=== PATIENT | male | born 1965 | race Caucasian/White ===

== ENCOUNTER 2020-04-03 09:57 | Day surgery (SDC) | payer MEDICAID, SELFPAY ==
--- NOTE | 2020-04-02 11:22 | EKG12_ITS ---
Test Reason : PRE-OP Blood Pressure : / mmHG Vent. Rate : 077 BPM Atrial Rate : 077 BPM P-R Int : 146 ms QRS Dur : 086 ms QT Int : 370 ms P-R-T Axes : 068 -21 068 degrees QTc Int : 418 ms Normal sinus rhythm Normal ECG Confirmed by ZAC BRITT, WES ([id number]), primer expeditor and drier WESLEY ALVAREZ ([id number]) on 04/03/2020 1:45:59 PM Referred By: Amita Harris Confirmed By:WES FRANK MD
[2020-04-02 12:34] LABS: Anion Gap 8 (5-15); BUN 20 mg/dL (7-18); BUN/Creat Ratio 27.6 RATIO (10-20); Calcium,Total 8.9 mg/dL (8.5-10.1); Chloride 107 mmol/L (98-107); Creatinine, Serum 0.72 mg/dL (0.70-1.30); EST Glomerular Filtration Rate 119 mL/min (>60); Est Glom Filt Rate - Afr Amer 144 mL/min (>60); Glucose 123 mg/dL (74-106); Sodium Level 138 mmol/L (136-145)
[2020-04-02 13:08] LABS: Hematocrit 44.4 % (40-54); Hemoglobin 14.6 g/dL (13.0-16.5); Mean Corp Hgb Conc 32.9 g/dL (32-36); Mean Corpuscular Hgb 31.5 pg (27.0-32.0); Mean Corpuscular Volume 95.9 fL (80-94); Mean Platelet Vol. 10.3 fl (6.2-12.0); Platelet Count 344 K/mm3 (150-450); RBC Distribution Width CV 13.8 % (11.6-14.6); RBC Distribution Width SD 48.5 fl (35.1-43.9); Red Blood Count 4.63 M/mm3 (4.6-6.2); White Blood Count 10.5 K/mm3 (4.4-11.0)
[2020-04-03] VITALS (7 sets, daily range): BP systolic 132–152; BP diastolic 86–109; PULSE 68–78; RESP 15–16; TEMP 36.4–36.6; O2SAT 94–98; BMI 30.8
--- NOTE | 2020-04-03 10:48 | HP.PCM_ITS ---
History and Physical Date of Admission: 04/03/20 Roberth Trejo 1965 ? ? REFERRING PHYSICIAN: Daniel Basilio III, MD ? CHIEF COMPLAINT: Update/preop phone visit for hernia surgery ? HPI: Roberth is a 55 year old male I am following with Dr. Amita Harris for ventral and bilateral inguinal hernias. Per Dr. Harris's H&P from 11/10/2019: ? The patient is a 54 year old male?presents with multiple abdominal wall hernias. He has noted these hernias for years, however, lately they have become more bothersome. Denies history of incarceration. Does smoke cigarettes (1 - ?1 11/03 ppd), has tried to quit but is unable to do so. Has known COPD. Has large right and small left inguinal hernias. Has incisional hernia of upper hypogastric area of abdominal wall, inferior to xiphoid, probably from mediastinal tube from his CABG surgery. Also has umbilical hernia. Denies GI/ obstructive symptoms. Denies previous hernia repairs. ? Dr. Harris had recommended hernia repairs, to be done in separate procedures and open due to patient body habitus and tobacco use. Dr. Harris had referred patient to PCP for preoperative clearance prior to surgery as he had not had recent primary care evaluation. Patient was evaluated by Dr. Daniel Basilio III on 12/16/2019, note reviewed. He had cardiac stress testing completed which showed no ischemia. Patient has been advised to quit smoking and is working on cutting back. He was cleared by PCP to proceed with surgery per phone encounter from 12/29/2019. ? Patient was scheduled with Dr. Harris for open right inguinal hernia repair to be performed at [facility] on 04/03 (scheduling note appears to have been entered in an old phone encounter in [facility]). The patient notes no symptoms of bowel obstruction and denies nausea or vomiting. He states the right inguinal hernia is still the only one that is bothering him. Denies any worsening of symptoms since he last spoke with Dr. Harris. Denies chest pain, shortness of breath or other concerns. ? The patient denies any significant change to his overall health since his last visit. His past medical history, past surgical history, medications and allergies are up to date as of this visit. ? ? ? PAST MEDICAL HISTORY PAST MEDICAL HISTORY Diagnosis Date ? ASHD (arteriosclerotic heart disease) 03/15/2018 ? nov, 2017: [place], CABG 2 ? Dyspnea 2017 ? with effort ? Family history of early CAD 2017 ? Ganglion, unspecified ? ? RIGHT FOOT ? Migraine headache with aura 02/16/2014 ? Non-recurrent bilateral inguinal hernia 03/12/2015 ? S/P CABG (coronary artery bypass graft) 11/2017 ? Tendinitis of hand 12/07/2012 ? Tobacco abuse 05/13/2011 ? Umbilical hernia 03/12/2015 ? PAST SURGICAL HISTORY PAST SURGICAL HISTORY Procedure Laterality Date ? CABG (2) VEIN GRAFTS & ARTERIAL GRAFT(S ? 11/2017 ? CURRENT MEDICATIONS Current Outpatient Medications Medication Sig ? glucosam/chond-msm1/C/paul/bor ([id number]-ZLMLF-HYC COMPLEX ORAL) Take by mouth. ? NIACIN ORAL Take by mouth. ? aspirin, enteric coated (ASPIRIN, ENTERIC COATED) 81 mg EC tablet Take 81 mg by mouth once daily. Take 2 tablets daily ? metoprolol tartrate, short acting, (LOPRESSOR) 50 mg tablet Take 50 mg by mouth twice daily. ? atorvastatin (LIPITOR) 40 mg tablet Take 40 mg by mouth once daily. ? Ibuprofen (ADVIL) 100 mg tablet Take 100 mg by mouth every 6 hours as needed. ? OTC NUTRITIONAL SUPPLEMENT b12 (Patient not taking: Reported on 11/10/2019 ) ? acetaminophen (TYLENOL) 325 mg tablet Take 650 mg by mouth as needed. ? No current facility-administered medications for this visit. ? ALLERGIES: Patient has no known allergies. ? PERSONAL HISTORY: SOCIAL HISTORY Social History ? Tobacco Use ? Smoking status: Current Every Day Smoker ? ? Packs/day: 1.50 ? ? Years: 26.00 ? ? Pack years: 39.00 ? ? Types: Cigarettes ? ? Start date: 10/06/1988 ? Smokeless tobacco: Former User Substance Use Topics ? Alcohol use: Yes ? ? Comment: rarely ? Drug use: Yes ? ? Types: Marijuana ? FAMILY HISTORY: FAMILY HISTORY FAMILY HISTORY Adopted: Yes ? REVIEW OF SYMPTOMS: Negative except as noted above ? ? ? Physical examination: Vital signs Temp [] HR [] RR [] BP [] General WD/WN WM/WF in no apparent distress, alert and oriented, not septic appearing HEENT Normocephalic. EOM intact with sclera clear and no icterus noted. Neck is supple with no jugular venous distention noted. Trachea is midline. No carotid bruits noted. No thyroid enlargement or thyroid nodules detected. No masses noted. No cervical adenopathy noted. Lungs clear to auscultation. Good inspiration upon command. Good breath sounds in all lung jha. No rales/rhonchi/wheezing noted. No labored breathing noted, such as retractions. No cough heard. Heart normal S1 and S2 auscultated. No rubs/clicks/murmurs noted. Normal size and location by auscultation. Abdomen soft and benign. Normal bowel sounds area auscultated. No abdominal bruits noted. No distention or tympany noted. No masses noted. No hepatosplenomegaly noted. right inguinal hernia - reducible Extremities no calf tenderness or swelling noted. No pitting edema noted. No obvious deformity noted. Genitourinary/Rectal deferred Skin no rashes noted. Normal skin integrity. Neurological cranial nerves II-XII intact. Normal motor strength in arms and legs. No localized numbness detected. Psychological normal affect, patient is calm and appropriate IMPRESSION: non reducible right inguinal hernia, left reducible inguinal hernia, umbilical hernia, ventral incisional hernia, obesity, tobacco use ? PLAN: I have reviewed my findings with Dr. Harris. She plans to perform an open right inguinal hernia repair with mesh. She has also recommended abdominal wall ventral hernia repairs and open left inguinal hernia repair at separate setting. The planned surgical procedure was discussed extensively with the patient. The risks, benefits, anticipated outcomes and possible complications were mentioned. Roberth sheppardands that all hernia repair surgery has a chance of recurrence and/or chronic post operative pain. My staff has also explained the procedure in understandable terms and the patient was given the option to take printed material concerning the planned procedure. The patient had the opportunity to ask questions concerning the planned procedure. The patient freely consents to the planned procedure. ? As a result of the 01/17/20 order by [facility] Director Stephei Marcum M.D. to cancel non-essential surgeries that would use PPE, unless special criteria are met, I have reviewed the clinical record for this patient and have determined that the scheduled procedure meets the criteria to go forward because there is a presence of severe symptoms causing an inability to perform activities of daily living. ? ? The patient was offered a surgery/procedure. The surgeon/proceduralist and patient have discussed in detail the risk of exposure to and/or potential harm posed by the COVID-19 virus with having a surgery/procedure at this time versus the risk of? delaying the surgery/procedure. It is not possible to know either the risk of delaying the surgery or procedure or chance of getting an infection with perfect accuracy, but a joint decision was made between the patient and the surgeon/proceduralist ?to proceed at this time with the scheduled surgery/procedure. ? Patient will have PAT and COVID testing at [facility] the day prior to surgery ? Patient verbalized understanding of all above and agreed with the plan. ? ? Anticipated CPT Code: open right inguinal hernia repair with mesh - [id number] ? Planned antibiotic: Ancef 2gm IVPB principal consultant to OR ? SCDs needed - Yes Return to Clinic: The patient is instructed to follow-up with me 1 week post operatively. ? ? Meghana Chávez PA-C
[2020-04-03] MEDS: Lactated Ringers 1,000 ML 100 ML IV (11:25)
[2020-04-03] MEDS: Cefazolin 2 GM in 0.9% Normal Saline 100 ML IV (12:16)
[2020-04-03] MEDS: Bupivacaine 0.25% 30 ML Vial (13:12)
--- NOTE | 2020-04-03 13:13 | OP.PCM_ITS ---
Report of Operation Date of Procedure: 04/03/20 Pre-Operative Diagnosis: right inguinal hernia - not reducible Post-Operative Diagnosis: right inguinal hernia - incarcerated - direct and indirect Surgery/Procedure Performed:: repair of incarcerated right inguinal hernia with mesh Description of Surgical Findings:: large incarcerated direct and indirect right inguinal hernia,no evidence of gangrene, incarcerated with intraabdominal and preperitoneal fat resourcing advisor: Maisha Spaulding Type of Anesthesia:: Local MAC Anesthesiologist: Blane Ware Specimen's removed: none Estimated Blood Loss (mL): < 5 ml Fluids Replaced: 1400 ml RL Description of Procedure: After informed consent was obtained, patient was brought to the Operating Room. Appropriate time out protocol was followed. He was then placed in the supine position. The patient was then placed under anesthesia. The lower torso and the right groin area and genitalia were then prepped with a surgical skin preparation and appropriate sterile surgical drapes were placed. The anatomical landmarks were identified and after anesthetizing the skin and subcutaneous tissues with 0.25% Marcaine with epinephrine, a transverse skin incision was made superior to the level of the internal inguinal ring. The subcutaneous tissues were then sharply dissected down to the external oblique fascia and any hemorrhage was adequately controlled with electrocoagulation. The external oblique was then divided obliquely along the fibers and a muscle-splitting incision was then made to divide the internal oblique musculature and fascia. The transversalis fascia was then identified and was then incised parallel to the inferior hypogastric vessels. The preperitoneal space was then entered. Blunt dissection was then done to identify out Trey's ligament, the pubic tubercle and a large area surrounding these landmarks for placement of the mesh. The right iliac vessels were identified. The internal inguinal hernia sac was identified, it was incarcerated in a direct hernia - fascial defect within Hasselbach's triangle. It was reduced. The sac was opened, there was no bowel, mainly intraabdominal fat. There was also surrounding preperitoneal fatty tissues. The opening in the sac was closed with running 3-0 vicryl suture. The contents were then placed in the preperitoneal space. A large right sided Bard 3 D mesh was then placed in the preperitoneal space such that the medial aspect was medial to the pubic tubercle and the inferior edge was inferior to Trey's ligament. It was then flattened against the anterior abdominal wall in its entirety thus covering Hasselbach's triangle the the iliac vessels. The mesh covered the entire wound opening also. The internal oblique fascia was then closed using interrupted 0 prolene suture. One of the sutures was used to lock the mesh into position. Hemostasis was carefully controlled with electrocoagulation. The external oblique fascia was then reapproximated using a running 0 Vicryl suture. This was carefully done to avoid any entrapment of blood vessels/nerves. Yadira's fascia was closed using Vicryl suture in an interrupted simple fashion. The skin incision was closed with 4-0 Monocryl in a running subcuticular fashion. Cavilon and Steri-Strips were used to reinforce the skin closure and appropriate sterile dressing was applied. The patient was brought to the Recovery Room in stable condition. Grafts/Implants Used: Bard 3D right mesh - lot [id number], exp 2024-11-29 - Complications none noted - Admit VTE Documentation VTE Present on Admission: Yes VTE Mechan Device Prophylaxis: SCD's
--- NOTE | 2020-04-03 13:15 | DCINST_ITS ---
Discharge Diet: No Restrictions Discharge Activity: Return to Normal Activity, May not drive while taking narcotic pain medications. Lifting Restrictions: no lifting greater than 50 pounds for one month Call your doctor if your incision/area has: Continuous Slow Oozing, Foul Smelling Discharge Call your doctor if you observe: Fever of 101 or Higher Additional Dressing/Incision Instructions:: Leave dressings in place. May get wet in shower. Do not soak - no tub baths/swimming. Apply ice packs to area for comfort as tolerated Allergies/Adverse Reactions: Allergies No Known Allergies Allergy (Verified 04/03/20 11:11) Medications to take at Discharge Aspirin E.C. [Ecotrin] 81 mg PO DAILY@0800 03/29/20 Atorvastatin Calcium [Lipitor] 40 mg PO QHS 03/29/20 Glucosam/MSM/Chondroit/Vit D3 [Sv Glucosamine Chondroitin Tab] 1 ea PO DAILY 03/29/20 Metoprolol Tartrate [Lopressor (Beta Shailesh)] 25 mg PO BID 03/29/20 Hydrocodone/Acetaminophen [[place] 5-325 Tablet] 1 each PO Q8 PRN 5 Days #15 tablet 04/03/20 The following prescriptions were given: Hydrocodone/Acetaminophen [[place] 5-325 Tablet] 1 each PO Q8 PRN 5 Days #15 tablet PRN Reason: Pain Score 4-10/10 Transmission Status: Sent to [facility] Primary Care Physician: Daniel Basilio III, MD [Primary Care Provider] - Test Results: Test results from this visit will be discussed in further detail at your follow- up appointment, if applicable. Please Follow Up With: Amita Harris MD - When: virtual visit will be schedule for you, if any problems, please call
[2020-04-03] MEDS: HYDROcodone Bitartrate/Apap 5/325 Tablet PO (16:00)
== END 2020-04-03 16:17 | disposition home or self-care (01) ==
LOC: SDC 09:58 → AC 09:59
PROVIDERS: Anesthesiology; PCP Family Medicine; Referring Provider Surgery; Visit Provider Surgery
PROC: (CPT 49507; principal; 2020-04-03 11:45)
DX: K40.30 Unilateral inguinal hernia, with obstruction, without gangrene, not specified as recurrent (principal); K43.9 Ventral hernia without obstruction or gangrene; K42.9 Umbilical hernia without obstruction or gangrene; F17.210 Nicotine dependence, cigarettes, uncomplicated; J44.9 Chronic obstructive pulmonary disease, unspecified; I25.2 Old myocardial infarction; I25.10 Atherosclerotic heart disease of native coronary artery without angina pectoris; E66.9 Obesity, unspecified; K21.9 Gastro-esophageal reflux disease without esophagitis; E78.00 Pure hypercholesterolemia, unspecified; I10 Essential (primary) hypertension; Z11.59 Encounter for screening for other viral diseases; Z68.30 Body mass index [BMI] 30.0-30.9, adult; Z95.1 Presence of aortocoronary bypass graft; Z79.82 Long term (current) use of aspirin; Z79.899 Other long term (current) drug therapy
CPT/HCPCS: 00830; 49507; 36415; 80048; 85027; 87635; 93005; G2023; J7050; J7120; C1781; J2405; U0003